=== PATIENT | male | born 1980 | race American Indian/Alaskan Native ===

== ENCOUNTER 2017-04-18 14:57 | Emergency (ER) | payer OTHER ==
[2017-04-18] MEDS ORDERED: MOTRIN PO ONE (21:03)
[2017-04-18] MEDS ORDERED: FLEXERIL PO ONE (21:03)
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
[2017-04-18] MEDS ORDERED: NORMODYNE PO ONE (21:22)
[2017-04-18 21:48] VITALS: BP 168/114
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
== END 2017-04-18 21:40 | disposition home or self-care (01) ==
LOC: ED 14:57
DX: M79.1 Myalgia (principal); V49.49XA Driver injured in collision with other motor vehicles in traffic accident, initial encounter; Y93.9 Activity, unspecified; Y92.9 Unspecified place or not applicable; Y99.9 Unspecified external cause status
CPT/HCPCS: 71020; 99283

== ENCOUNTER 2017-06-11 07:55 | Emergency (ER) | payer SELFPAY ==
[2017-06-11] MEDS ORDERED: NACL 0.9% 1000 ML 2,000 ML IV ONE (08:34)
[2017-06-11] MEDS ORDERED: NACL 0.9% 1000 ML 1,000 ML ONE ×3 (08:35→08:36)
[2017-06-11] MEDS ORDERED: ZOFRAN IV ONE ×2 (08:42→10:38)
[2017-06-11] MEDS ORDERED: NORMODYNE IV ONE ×3 (08:42→14:16)
[2017-06-11] MEDS ORDERED: NACL 0.9% 1000 ML 1,500 ML IV ONE (09:10)
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
[2017-06-11 09:21] LABS: Basophils % (Auto) 0.3 % (0.0-1.8); Eosinophils % (Auto) 0.8 % (0.0-4.3); Hematocrit 44.9 % (35.5-45.6); Hemoglobin 14.4 gm/dl (11.8-15.2); Mean Corpuscular HGB Conc 32 % (32-34); Mean Corpuscular Hemoglobin 26 pg (28-32); Mean Corpuscular Volume 80 fl (84-94); Platelet Count 247 K/mm3 (140-440); Red Blood Count 5.59 M/mm3 (3.65-5.03); White Blood Count 10.6 K/mm3 (4.5-11.0)
--- NOTE | 2017-06-11 09:43 | XRay Report ---
AP CHEST: HISTORY: chest pain AP view of the chest demonstrates a normal mediastinal and cardiac contour with clear lungs and normal bony and soft tissue structures. IMPRESSION: Unremarkable AP chest.
[2017-06-11 09:45] LABS: Alanine Aminotransferase 36 units/L (7-56); Albumin 4.4 g/dL (3.9-5); Albumin/Globulin Ratio 1.4 %; Alkaline Phosphatase 85 units/L (35-129); BUN/Creatinine Ratio 21; Blood Urea Nitrogen 23 mg/dL (9-20); Calcium 8.9 mg/dL (8.4-10.2); Carbon Dioxide 23 mmol/L (22-30); Glucose 249 mg/dL (75-100); Total Protein 7.6 g/dL (6.3-8.2)
[2017-06-11 09:46] LABS: Anion Gap 22 mmol/L; Chloride 99.1 mmol/L (98-107); Potassium 3.5 mmol/L (3.6-5.0); Sodium 141 mmol/L (137-145)
[2017-06-11] MEDS ORDERED: K-DUR PO ONE ×2 (10:31→10:33)
[2017-06-11] MEDS ORDERED: MORPHINE IV ONE (10:38)
[2017-06-11 13:15] LABS: Urine Drugs of Abuse Note Disclamer
[2017-06-11 13:24] LABS: Bilirubin,Urine NEG (Negative); Blood,Urine NEG (Negative); Ketones,Urine NEG (Negative); Leukocyte Esterase,Urine NEG (Negative); Mucus,Urine FEW /HPF; Nitrite,Urine NEG (Negative); Protein,Urine <15 mg/dL mg/dL (Negative); RBC,Urine < 1.0 /HPF (0.0-6.0); Urobilinogen,Urine < 2.0 mg/dL (<2.0)
[2017-06-11 14:49] VITALS: BP 144/96
== END 2017-06-11 14:49 | disposition home or self-care (01) ==
LOC: ED 07:55
DX: E86.0 Dehydration (principal); E87.6 Hypokalemia; R07.9 Chest pain, unspecified; E11.65 Type 2 diabetes mellitus with hyperglycemia; I10 Essential (primary) hypertension
CPT/HCPCS: 36415; 71010; 80053; 80307; 81001; 82805; 82962; 83690; 83880; 84484; 85025; 93005; 93010; 96361; 96374; 96375; 96376; 99284; J2270; J2405; J7030